=== PATIENT | female | born 1975 | race Hispanic/Latino ===

== ENCOUNTER → 2022-06-02 | Day surgery (SDC) | payer MEDICARE, OTHER, MEDICAID ==
[~2022-06-02] MED LIST: DAPTOmycin 500 MG VIAL ONE; Meropenem 500 MG VIAL ONE; Sodium Chloride 0.9% 200 ML ONE
[2022-06-02 12:42] LABS: Hemoglobin 9.6 g/dL (12.0-16.0); Mean Corpuscular HGB CONC 30.1 g/dL (32.0-36.0); Mean Corpuscular Hemoglobin 31.6 pg (27.0-31.0); Mean Platelet Volume 6.2 fL (7.4-10.4); Platelet Count 181 10x3/uL (130-400); RBC Distribution Width 16.4 % (11.5-14.5); Red Blood Cell (RBC) Count 3.03 mill/uL (4.20-5.40); White Blood Cell (WBC) Count 7.2 10x3/uL (4.8-10.8)
[2022-06-02 12:45] LABS: ALT (SGPT) 7 U/L (8-55); AST (SGOT) 42 U/L (5-34); Albumin 2.2 g/dL (3.5-5.0); Alkaline Phosphatase 223 U/L (40-110); Anion Gap 14 mmol/L (10-20); BUN (Urea Nitrogen) 13 mg/dL (7.0-18.7); Bilirubin, Total 0.2 mg/dL (0.2-1.2); CRP (Inflammatory) 4.16 mg/dL (= or < 0.5); Calc. Creatinine Clearance 0 mL/min (70-130); Calcium 8.3 mg/dL (7.8-10.44); Carbon Dioxide 27 mmol/L (22-29); Chloride 104 mmol/L (98-107); Estimated GFR 16; Globulin 3.1 g/dL (2.4-3.5); Glucose 125 mg/dL (70-105); Potassium 3.7 mmol/L (3.5-5.1); Protein, Total 5.3 g/dL (6.0-8.3); Sodium 141 mmol/L (136-145)
[2022-06-02 12:48] LABS: Follow-up Chemistry Comp? YES; Follow-up Result - Chemistry REPORT FAXED
== END | disposition home or self-care (01) ==
LOC: NAV ER/OP 11:44
PROVIDERS: ATTEND Internal Medicine Nephrology
DX: M86.172 Other acute osteomyelitis, left ankle and foot (principal)
CPT/HCPCS: 80053; 85027; 86140; 96365; 96375; J0878; J1642; J2185; J3490

== ENCOUNTER → 2022-06-03 | Day surgery (SDC) | payer MEDICARE, OTHER ==
[~2022-06-03] MED LIST changes: -DAPTOmycin 500 MG VIAL ONE; +Meropenem 1 GM VIAL ONE; -Meropenem 500 MG VIAL ONE; +Sodium Chloride 0.9% 100 ML ONE; -Sodium Chloride 0.9% 200 ML ONE
== END | disposition home or self-care (01) ==
LOC: NAV ER/OP 11:11
PROVIDERS: ATTEND Internal Medicine Nephrology
DX: M86.172 Other acute osteomyelitis, left ankle and foot (principal)
CPT/HCPCS: J1642; J2185; J3490

== ENCOUNTER → 2022-06-04 | Day surgery (SDC) | payer MEDICARE, OTHER | END | disposition home or self-care (01) | LOC: NAV ER/OP 11:41 | PROVIDERS: ATTEND Internal Medicine Nephrology | DX: M86.172 Other acute osteomyelitis, left ankle and foot (principal) | CPT/HCPCS: J1642; J2185; J3490 ==

== ENCOUNTER → 2022-06-05 | Day surgery (SDC) | payer OTHER | END | disposition home or self-care (01) | LOC: NAV ER/OP 11:34 | PROVIDERS: ATTEND Internal Medicine Nephrology | DX: M86.172 Other acute osteomyelitis, left ankle and foot (principal) | CPT/HCPCS: J1642; J2185; J3490 ==

== ENCOUNTER → 2022-06-06 | Day surgery (SDC) | payer OTHER ==
[2022-06-06 11:54] LABS: Hemoglobin 9.9 g/dL (12.0-16.0); Mean Corpuscular HGB CONC 30.2 g/dL (32.0-36.0); Mean Corpuscular Hemoglobin 30.8 pg (27.0-31.0); Mean Platelet Volume 7.1 fL (7.4-10.4); Platelet Count 158 10x3/uL (130-400)
[2022-06-06 12:08] LABS: ALT (SGPT) 37 U/L (8-55); AST (SGOT) 188 U/L (5-34); Albumin 2.5 g/dL (3.5-5.0); Alkaline Phosphatase 409 U/L (40-110); Anion Gap 17 mmol/L (10-20); BUN (Urea Nitrogen) 27 mg/dL (7.0-18.7); Bilirubin, Total 0.2 mg/dL (0.2-1.2); CRP (Inflammatory) 3.29 mg/dL (= or < 0.5); Calc. Creatinine Clearance 0 mL/min (70-130); Calcium 8.6 mg/dL (7.8-10.44); Carbon Dioxide 23 mmol/L (22-29); Chloride 102 mmol/L (98-107); Estimated GFR 10; Glucose 156 mg/dL (70-105); Protein, Total 5.5 g/dL (6.0-8.3); Sodium 138 mmol/L (136-145)
[2022-06-06 12:49] LABS: Follow-up Chemistry Comp? YES; Follow-up Hematology Comp? YES; Follow-up Result - Chemistry REPORT FAXED; Follow-up Result - Hematology REPORT FAXED
== END | disposition home or self-care (01) ==
LOC: NAV ER/OP 11:18
PROVIDERS: ATTEND Internal Medicine Nephrology
DX: M86.172 Other acute osteomyelitis, left ankle and foot (principal)
CPT/HCPCS: 80053; 85027; 86140; J1642; J2185; J3490

== ENCOUNTER → 2022-06-07 | Day surgery (SDC) | payer MEDICARE, OTHER | END | disposition home or self-care (01) | LOC: NAV ER/OP 11:09 | PROVIDERS: ATTEND Internal Medicine Nephrology | DX: M86.172 Other acute osteomyelitis, left ankle and foot (principal) | CPT/HCPCS: J1642; J2185; J3490 ==

== ENCOUNTER → 2022-06-08 | Day surgery (SDC) | payer MEDICARE, OTHER | END | disposition home or self-care (01) | LOC: NAV ER/OP 10:38 | PROVIDERS: ATTEND Internal Medicine Nephrology | DX: M86.172 Other acute osteomyelitis, left ankle and foot (principal) | CPT/HCPCS: J1642; J2185; J3490 ==

== ENCOUNTER → 2022-06-09 | Day surgery (SDC) | payer MEDICARE, MEDICAID | END | disposition home or self-care (01) | LOC: NAV ER/OP 10:47 | PROVIDERS: ATTEND Internal Medicine Nephrology | DX: M86.172 Other acute osteomyelitis, left ankle and foot (principal) | CPT/HCPCS: J1642; J2185; J3490 ==

== ENCOUNTER → 2022-06-10 | Day surgery (SDC) | payer OTHER | END | disposition home or self-care (01) | LOC: NAV ER/OP 10:13 | PROVIDERS: ATTEND Internal Medicine Nephrology | DX: M86.172 Other acute osteomyelitis, left ankle and foot (principal) | CPT/HCPCS: 96365; J1642; J2185; J3490 ==

== ENCOUNTER → 2022-06-11 | Day surgery (SDC) | payer MEDICARE, OTHER ==
[~2022-06-11] MED LIST changes: -Sodium Chloride 0.9% 100 ML ONE
== END | disposition home or self-care (01) ==
LOC: NAV ER/OP 10:11
PROVIDERS: ATTEND Internal Medicine Nephrology
DX: M86.172 Other acute osteomyelitis, left ankle and foot (principal)
CPT/HCPCS: 96365; J1642; J2185